=== PATIENT | female | born 1950 | race Caucasian/White ===

== ENCOUNTER 2020-12-13 11:19 | Emergency (ER) | payer MEDICARE, OTHER ==
[2020-12-13] MEDS ORDERED: Dextrose 5 %-0.45 % NaCl 1,000 ML ONE (11:41)
[2020-12-13 11:45] LABS: White Blood Cell (WBC) Count 9.6 thou/uL (4.8-10.8)
[2020-12-13 11:46] LABS: Hemoglobin 13.4 g/dL (12.0-16.0); Mean Corpuscular Hemoglobin 30.5 pg (27.0-31.0)
[2020-12-13 11:47] LABS: #Basophils 0.1 thou/uL (0.0-0.2); #Eosinphils 0.2 thou/uL (0.0-0.7); #Monocytes 0.5 thou/uL (0.11-0.59); #Neutrophils 6.8 thou/uL (1.40-6.50); %Basophils 0.8 % (0.0-1.0); %Eosinophils 2.1 % (0.0-10.0); %Lymphocytes 20.4 % (21.0-51.0); %Monocytes 5.7 % (0.0-10.0); %Neutrophils 71.1 % (42.0-75.0); Manual Diff?? NO; Mean Corpuscular HGB CONC 30.3 g/dL (32.0-36.0); Mean Platelet Volume 8.3 fL (7.4-10.4); Platelet Count 180 thou/uL (130-400); RBC Distribution Width 11.8 % (11.5-14.5)
[2020-12-13 12:01] LABS: ALT (SGPT) 74 U/L (8-55); AST (SGOT) 132 U/L (5-34); Albumin 4.5 g/dL (3.4-4.8); Alkaline Phosphatase 95 U/L (40-110); Anion Gap 16 mmol/L (10-20); BUN (Urea Nitrogen) 21 mg/dL (9.8-20.1); Bilirubin, Total 0.8 mg/dL (0.2-1.2); Calc. Creatinine Clearance 0 mL/min (70-130); Calcium 9.6 mg/dL (7.8-10.44); Carbon Dioxide 24 mmol/L (23-31); Chloride 107 mmol/L (98-107); Globulin 3.4 g/dL (2.4-3.5); Potassium 4.8 mmol/L (3.5-5.1); Protein, Total 7.9 g/dL (5.8-8.1); Sodium 142 mmol/L (136-145)
[2020-12-13 12:31] LABS: Glucose 54 mg/dL (80-115)
== END 2020-12-13 15:51 | disposition short-term general hospital (02) ==
LOC: NAV ERS 11:19
DX: E10.649 Type 1 diabetes mellitus with hypoglycemia without coma (principal); R79.1 Abnormal coagulation profile; R07.81 Pleurodynia; I10 Essential (primary) hypertension; Z79.899 Other long term (current) drug therapy
CPT/HCPCS: 36416; 80053; 84443; 84484; 85025; 85379; 93005; J7042

== ENCOUNTER 2023-04-19 11:15 | Emergency (ER) | payer MEDICARE, OTHER ==
[2023-04-19 12:27] LABS: Anion Gap 13 mmol/L (10-20); BUN (Urea Nitrogen) 22 mg/dL (9.8-20.1); Calc. Creatinine Clearance 0 mL/min (70-130); Calcium 9.9 mg/dL (7.8-10.44); Carbon Dioxide 25 mmol/L (23-31); Chloride 105 mmol/L (98-107); Estimated GFR 44; Glucose 123 mg/dL (80-115); Potassium 4.6 mmol/L (3.5-5.1); Sodium 138 mmol/L (136-145)
== END 2023-04-19 12:50 | disposition home or self-care (01) ==
LOC: NAV ERS 11:15
DX: E87.5 Hyperkalemia (principal); I10 Essential (primary) hypertension; E10.9 Type 1 diabetes mellitus without complications; I25.10 Atherosclerotic heart disease of native coronary artery without angina pectoris; Z79.4 Long term (current) use of insulin; Z79.899 Other long term (current) drug therapy; Z79.82 Long term (current) use of aspirin
CPT/HCPCS: 36415; 80048; 99284

== ENCOUNTER 2024-09-24 12:54 | Emergency (ER) | payer OTHER | END 2024-09-24 13:08 | disposition home or self-care (01) | LOC: NAV ERS 12:54 | DX: S61.210D Laceration without foreign body of right index finger without damage to nail, subsequent encounter (principal); I10 Essential (primary) hypertension; E10.9 Type 1 diabetes mellitus without complications; X58.XXXD Exposure to other specified factors, subsequent encounter ==